=== PATIENT | male | born 1955 | race Caucasian/White ===

== ENCOUNTER 2017-10-14 13:28 | Emergency (ER) | payer BC ==
[2017-10-14 13:43] VITALS: BP 134/74
--- NOTE | 2017-10-14 14:20 | UC ---
Cardiac HPI - HPI Summary HPI Summary: 62 yo male with one week hx of lower sternal chest pain which has been intermittent. Has been sweating a lot and has had mild dyspnea. He is under a lot of stress due to a divorce On Clomid for LOW T - History of Current Complaint Chief Complaint: UCGeneralIllness Stated Complaint: STOMACH COMPAINT Time Seen by Provider: 10/14/17 13:49 Hx Obtained From: Patient Onset/Duration: Gradual Onset, Lasting Days Timing: Intermittent Episodes Lasting: - hours Initial Severity: Moderate Current Severity: Mild Pain Intensity: 3 Chest Pain Location: Lower Sternal Character: Dull/Aching Aggravating Factor(s): Nothing Alleviating Factor(s): Spontaneous Resolution Associated Signs & Symptoms: Positive: Recent Stress, SOB, Diaphoresis - Allergy/Home Medications Allergies/Adverse Reactions: Allergies Allergy/AdvReac Type Severity Reaction Status Date / Time Latex Allergy SENSITIVE Verified 10/14/17 14:12 Home Medications: Home Medications Aspirin 3 tab PO ONCE 10/14/17 [History Confirmed 10/14/17] Brimonidine/Timolol OPTH(NF) [Combigan OPHTH (NF)] 1 drop BOTH EYES 10/14/17 [ History] Clomiphene Citrate 25 mg PO DAILY 10/14/17 [History Confirmed 10/14/17] PMH/Surg Hx/FS Hx/Imm Hx Previously Healthy: Yes Endocrine History: Dyslipidemia Cardiovascular History: Hypertension - Surgical History Surgical History: Yes Surgery Procedure, Year, and Place: UROLOGY SURGERIES- [facility] [place]. FOOT SURGERY- - Family History Known Family History: Positive: Cardiac Disease, Hypertension - Social History Alcohol Use: Rare Substance Use Type: None Smoking Status (MU): Current Some Day Smoker Amount Used/How Often: cigars rarely Review of Systems Constitutional: Negative Skin: Negative Eyes: Negative ENT: Negative Respiratory: Shortness Of Breath Cardiovascular: Chest Pain Gastrointestinal: Negative Genitourinary: Negative Motor: Negative Neurovascular: Negative Musculoskeletal: Negative Neurological: Negative Psychological: Negative Is Patient Immunocompromised?: No All Other Systems Reviewed And Are Negative: Yes Physical Exam Triage Information Reviewed: Yes Appearance: Well-Appearing, No Pain Distress, Well-Nourished Vital Signs: Initial Vital Signs Temp 98.4 F 10/14/17 13:36 Pulse 63 10/14/17 13:36 Resp 16 10/14/17 13:36 BP 134/74 10/14/17 13:36 Eye Exam: Normal ENT: Positive: Hearing grossly normal, Nasal congestion, Nasal drainage. Negative: Muffled voice Neck: Positive: Supple, Nontender, No Lymphadenopathy Respiratory: Positive: Lungs clear, Normal breath sounds, No respiratory distress, No accessory muscle use Cardiovascular: Positive: RRR, No Murmur Abdomen Description: Positive: Nontender, No Organomegaly, Soft Musculoskeletal: Positive: ROM Intact, No Edema Neurological: Positive: Alert Psychological Exam: Normal Skin Exam: Normal Diagnostics - EKG Cardiac Rate: NL Cardiac Rhythm: LBBB: Normal - with LAHB Ectopy: None ST Segment: Normal - Assessment/Plan Course Of Treatment: declines EMS transfer. declined our ASA but took three baby ASA of his own. D/W Dr. Cordon - Clinical Impression Provider Diagnoses: Chest pain of uncertain cause Discharge - Discharge Plan Condition: Stable Disposition: HOME Referrals: No Primary Care Phys,NOPCP [Primary Care Provider] - Additional Instructions: I suggest you go to the ER for further evaluation of your symptoms
== END 2017-10-14 14:15 | disposition home or self-care (01) ==
LOC: UCEAST 13:28
DX: R07.2 Precordial pain (principal); Z72.0 Tobacco use
CPT/HCPCS: 93005; 99212; G0463

== ENCOUNTER 2017-10-14 14:30 | Observation (INO) | payer BC ==
--- NOTE | 2017-10-14 16:02 | RAD ---
HISTORY: Chest pain COMPARISONS: February 22, 2012 VIEWS: 1: frontal portable view of the chest at 3:35 PM FINDINGS: LINES AND TUBES: None. CARDIOMEDIASTINAL SILHOUETTE: The cardiomediastinal silhouette is normal for portable technique. PLEURA: The costophrenic angles are sharp. No pleural abnormalities are noted. LUNG PARENCHYMA: The lungs are clear. ABDOMEN: The upper abdomen is clear. There is no subphrenic gas. BONES AND SOFT TISSUES: No bone or soft tissue abnormalities are noted. IMPRESSION: NO ACTIVE CARDIOPULMONARY DISEASE.
[2017-10-14 16:40] LABS: Hematocrit 39 % (42-52); Hemoglobin 13.2 g/dl (14.0-18.0); Mean Corpuscular HGB Conc 34 g/dl (31-36); Mean Corpuscular Hemoglobin 32 pg (27-31); Mean Corpuscular Volume 94 fL (80-94); Mean Platelet Volume 8 um3 (7.4-10.4); Red Blood Count 4.14 10^6/ul (4.0-5.4); Red Cell Distribution Width 14 % (10.5-15); White Blood Count 8.2 10^3/ul (3.5-10.8)
[2017-10-14 16:54] LABS: Albumin 3.9 g/dL (3.2-5.2); BUN/Creatinine Ratio 15.7 (8-20); Calcium 8.8 mg/dL (8.6-10.3); EGFR African American 89.4 (>60); EGFR Non-African American 69.5 (>60); Globulin 2.8 g/dL (2-4); Magnesium 2.1 mg/dL (1.9-2.7); Potassium 3.8 mmol/L (3.5-5.0); Total Bilirubin 0.5 mg/dL (0.2-1.0); Total Protein 6.7 g/dL (6.4-8.9)
[2017-10-14 16:56] LABS: Urine Bilirubin Negative (Negative); Urine Glucose Negative (Negative); Urine Nitrite Negative (Negative)
[2017-10-14 17:59] LABS: T4 8.08 mcg/mL (6.09-12.23)
[2017-10-14 18:02] LABS: TSH (Thyroid Stimulating Horm) 1.87 mcIU/mL (0.34-5.60)
[2017-10-14] MEDS ORDERED: Atenolol TAB* 25 MG PO ONE (20:10)
[2017-10-14] MEDS ORDERED: amLODIPine TAB* 5 MG PO ONE (20:10)
[2017-10-14] MEDS ORDERED: oxyCODONE TAB* 5 MG TAB PO ONE (20:10)
--- NOTE | 2017-10-14 20:20 | ED ---
Kaushal Dubios Gabriel, scribed for Dionna Cordon MD on 10/14/17 at 1503 . HPI Chest Pain - HPI Summary HPI Summary: This patient is a 62 year old M presenting to [facility] [place] [facility] [place], accompanied by his female significant other with a chief complaint of "solar plexus pain" since a week ago. The patient rates the pain 3/10 in severity. Patient reports intermittent sob for the last year. Patient denies radiating pain. Patient works out 6 days a week and does not have heart issues while working out. Patient takes Atenolol, rosuvastatin, amlodipine, lumigan, ASA, and oxycodone daily. He is on Clomid for low testosterone and believes that might be the reason for his chest discomfort. Pt received ASA in urgent care. 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 Pt has known hx hyperlipidemia, HTN,and RBBB, + fam hx CAD. Is followed by electronic commerce specialist in [facility], Dr. Potter. Had a neg stress ECHO in 12/2014. - History of Current Complaint Chief Complaint: EDWeakness Time Seen by Provider: 10/14/17 14:39 Hx Obtained From: Patient, Medical Records - from [facility], Other: - Dr. Ibanez at urgent care. Onset/Duration: Started Weeks Ago - 1, Still Present Timing: Constant Initial Severity: Mild Current Severity: Mild Pain Intensity: 3 Pain Scale Used: 0-10 Numeric Chest Pain Location: Diffuse Chest Pain Radiates: No Character: Dull/Aching, Dyspnea at Rest - occasional Aggravating Factor(s): Nothing Alleviating Factor(s): Nothing Associated Signs and Symptoms: Positive: Negative - radiation of pain, Chest Pain, Recent Stress, Shortness of Breath - Risk Factors AMI/ACS Risk Factors: Family History, Hypertension, Dyslipidemia - Allergy/Home Medications Allergies/Adverse Reactions: Allergies Allergy/AdvReac Type Severity Reaction Status Date / Time Latex Allergy SENSITIVE Verified 10/14/17 14:12 PMH/Surg Hx/FS Hx/Imm Hx Previously Healthy: No Endocrine/Hematology History: Reports: Hx Thyroid Disease - HYPOTHYROID- [facility] Cardiovascular History: Reports: Hx Hypercholesterolemia, Hx Hypertension - ON MEDICATION FOR History: Reports: Hx Kidney Stones Musculoskeletal History: Reports: Hx Arthritis Sensory History: Reports: Hx Glaucoma - BILATERAL Denies: Hx Contacts or Glasses, Hx Hearing Aid Opthamlomology History: Reports: Hx Glaucoma - BILATERAL Denies: Hx Contacts or Glasses - Surgical History Surgery Procedure, Year, and Place: UROLOGY SURGERIES- [facility]. FOOT SURGERY-. Cj injection in bladder Hx Anesthesia Reactions: No Infectious Disease History: No Infectious Disease History: Denies: Traveled Outside the [place] in Last 30 Days - Family History Known Family History: Positive: Cardiac Disease, Hypertension - Social History Alcohol Use: Rare Substance Use Type: Reports: None Smoking Status (MU): Current Some Day Smoker Type: Cigars Amount Used/How Often: cigars rarely Review of Systems Constitutional: Negative Positive: Chest Pain Positive: Shortness Of Breath Gastrointestinal: Negative Skin: Negative Neurological: Negative Psychological: Normal All Other Systems Reviewed And Are Negative: Yes Physical Exam - Summary Physical Exam Summary: Appearance: Well-appearing, mild pain distress, Well-nourished Skin: Warm, color reflects adequate perfusion Head: Normal Head/Face inspection Eyes: Conjunctiva clear, EOMI ENT: Normal appearance Neck: Supple, no bruits, nontender, no lymphadenopathy Respiratory: Lungs clear, Normal breath sounds, no respiratory distress Cardio: RRR, No murmur, pulses normal, brisk capillary refill Abdomen: soft, nontender Musculoskeletal: Strength Intact/ ROM intact Neuro: Alert, muscle tone normal, ED: facial symmetry, speech normal, sensory/ motor intact A&Ox3, CN II-XII intact, Gait WNL Psychological: Normal Triage Information Reviewed: Yes Vital Signs On Initial Exam: Initial Vitals Temp Pulse Resp BP Pulse Ox 97.6 F 71 16 153/82 98 10/14/17 14:37 10/14/17 14:37 10/14/17 14:37 10/14/17 14:37 10/14/17 14:37 Vital Signs Reviewed: Yes Diagnostics - Vital Signs Vital Signs Temp Pulse Resp BP Pulse Ox 10/14/17 14:37 97.6 F 71 16 153/82 98 - Laboratory Lab Results: Lab Results 10/14/17 10/14/17 10/14/17 Range/Units 16:18 16:18 16:18 WBC 8.2 (3.5-10.8) 10^3/ul RBC 4.14 (4.0-5.4) 10^6/ul Hgb 13.2 L (14.0-18.0) g/dl Hct 39 L (42-52) % MCV 94 (80-94) fL MCH 32 H (27-31) pg MCHC 34 (31-36) g/dl RDW 14 (10.5-15) % Plt Count 192 (150-450) 10^3/ul MPV 8 (7.4-10.4) um3 Neut % (Auto) 65.0 (38-83) % Lymph % (Auto) 20.6 L (25-47) % Hartley % (Auto) 8.9 (1-9) % Eos % (Auto) 4.9 (0-6) % Baso % (Auto) 0.6 (0-2) % Absolute Neuts (auto) 5.3 (1.5-7.7) 10^3/ul Absolute Lymphs (auto) 1.7 (1.0-4.8) 10^3/ul Absolute Monos (auto) 0.7 (0-0.8) 10^3/ul Absolute Eos (auto) 0.4 (0-0.6) 10^3/ul Absolute Basos (auto) 0.1 (0-0.2) 10^3/ul Absolute Nucleated RBC 0 10^3/ul Nucleated RBC % 0 INR (Anticoag Therapy) 0.88 (0.77-1.02) APTT 29.9 (26.0-36.3) seconds D-Dimer, Quantitative < 200 (Less Than 230) ng/mL Sodium (133-145) mmol/L Potassium (3.5-5.0) mmol/L Chloride (101-111) mmol/L Carbon Dioxide (22-32) mmol/L Anion Gap (2-11) mmol/L BUN (6-24) mg/dL Creatinine (0.67-1.17) mg/dL Est GFR ( Amer) (>60) Est GFR (Non-Af Amer) (>60) BUN/Creatinine Ratio (8-20) Glucose (70-100) mg/dL Lactic Acid (0.5-2.0) mmol/L Calcium (8.6-10.3) mg/dL Magnesium (1.9-2.7) mg/dL Total Bilirubin (0.2-1.0) mg/dL AST (13-39) U/L ALT (7-52) U/L Alkaline Phosphatase (34-104) U/L Total Creatine Kinase (10-223) U/L CK-MB (CK-2) (0.6-6.3) ng/mL Troponin I (<0.04) ng/mL B-Natriuretic Peptide 50 ( - 100) pg/mL Total Protein (6.4-8.9) g/dL Albumin (3.2-5.2) g/dL Globulin (2-4) g/dL Albumin/Globulin Ratio (1-3) TSH (0.34-5.60) mcIU/mL Thyroxine (T4) (6.09-12.23) mcg/mL Urine Color Urine Appearance Urine pH (5-9) Ur Specific [place] (1.010-1.030) Urine Protein (Negative) Urine Ketones (Negative) Urine Blood (Negative) Urine Nitrate (Negative) Urine Bilirubin (Negative) Urine Urobilinogen (Negative) Ur Leukocyte Esterase (Negative) Urine Glucose (Negative) 10/14/17 10/14/17 10/14/17 Range/Units 16:18 16:18 16:23 WBC (3.5-10.8) 10^3/ul RBC (4.0-5.4) 10^6/ul Hgb (14.0-18.0) g/dl Hct (42-52) % MCV (80-94) fL MCH (27-31) pg MCHC (31-36) g/dl RDW (10.5-15) % Plt Count (150-450) 10^3/ul MPV (7.4-10.4) um3 Neut % (Auto) (38-83) % Lymph % (Auto) (25-47) % Hartley % (Auto) (1-9) % Eos % (Auto) (0-6) % Baso % (Auto) (0-2) % Absolute Neuts (auto) (1.5-7.7) 10^3/ul Absolute Lymphs (auto) (1.0-4.8) 10^3/ul Absolute Monos (auto) (0-0.8) 10^3/ul Absolute Eos (auto) (0-0.6) 10^3/ul Absolute Basos (auto) (0-0.2) 10^3/ul Absolute Nucleated RBC 10^3/ul Nucleated RBC % INR (Anticoag Therapy) (0.77-1.02) APTT (26.0-36.3) seconds D-Dimer, Quantitative (Less Than 230) ng/mL Sodium 133 (133-145) mmol/L Potassium 3.8 (3.5-5.0) mmol/L Chloride 98 L (101-111) mmol/L Carbon Dioxide 27 (22-32) mmol/L Anion Gap 8 (2-11) mmol/L BUN 17 (6-24) mg/dL Creatinine 1.08 (0.67-1.17) mg/dL Est GFR ( Amer) 89.4 (>60) Est GFR (Non-Af Amer) 69.5 (>60) BUN/Creatinine Ratio 15.7 (8-20) Glucose 134 H (70-100) mg/dL Lactic Acid 1.0 (0.5-2.0) mmol/L Calcium 8.8 (8.6-10.3) mg/dL Magnesium 2.1 (1.9-2.7) mg/dL Total Bilirubin 0.50 (0.2-1.0) mg/dL AST 27 (13-39) U/L ALT 21 (7-52) U/L Alkaline Phosphatase 51 (34-104) U/L Total Creatine Kinase 133 (10-223) U/L CK-MB (CK-2) 4.5 (0.6-6.3) ng/mL Troponin I 0.00 (<0.04) ng/mL B-Natriuretic Peptide ( - 100) pg/mL Total Protein 6.7 (6.4-8.9) g/dL Albumin 3.9 (3.2-5.2) g/dL Globulin 2.8 (2-4) g/dL Albumin/Globulin Ratio 1.4 (1-3) TSH 1.87 (0.34-5.60) mcIU/mL Thyroxine (T4) 8.08 (6.09-12.23) mcg/mL Urine Color Straw Urine Appearance Clear Urine pH 6.0 (5-9) Ur Specific [place] 1.004 L (1.010-1.030) Urine Protein Negative (Negative) Urine Ketones Negative (Negative) Urine Blood Negative (Negative) Urine Nitrate Negative (Negative) Urine Bilirubin Negative (Negative) Urine Urobilinogen Negative (Negative) Ur Leukocyte Esterase Negative (Negative) Urine Glucose Negative (Negative) Result Diagrams: 10/14/17 21:20 10/14/17 21:20 Lab Statement: Any lab studies that have been ordered have been reviewed, and results considered in the medical decision making process. - EKG 1446 Cardiac Rate: NL EKG Rhythm: Sinus Rhythm - at64 BPM EKG Interpretation: Normal AV, prolonged IV, RBBB, LAFB, normal QTc, left axis minus 44 Re-Evaluation - Re-Evaluation First Eval Re-Evaluation Time: 18:30 - No CP. Advised he needs consult for admit for possible stress test. Pt not sure if he will stay. 2nd troponin drawn. Change: Unchanged Second Eval Re-Evaluation Time: 19:45 - Pt wants to leave. Is deciding if he will stay for stress test in am. Change: Unchanged Chest Pain Course/Dx - Course Course Of Treatment: pt given ASA in UC. TONY score 2 for HTN, HLD and fam hx, and ASA use. last stress ECHO 01/10. Admit obs to hospitalist for stress test in AM - Chest Pain Differential Diagnosis/HQI/PQRI: Acute MO, ACS, Angina, Chest Wall, GI Disease, Lower Respiratory Infection, Pulmonary Embolism - Diagnoses Provider Diagnoses: Chest pain - Provider Notifications Discussed Care Of Patient With: Tu Call Time Discussed With Above Provider: 18:39 Instructed by Provider To: Admit As Observation - We discussed patient care with Dr. Call and they agreed to come and do a consult. [address] Corey. He does not recommend discharge at this time. Needs to do full consult, but expects to admit obs and arrange stress test in theam. - Critical Care Time Critical Care Time: 30-74 min - 30 mins Discharge - Discharge Plan Condition: Stable Disposition: ADMITTED TO [facility] documentation as recorded by the Kaushal collier Gabriel accurately reflects the service I personally performed and the decisions made by me, Dionna Cordon MD.
[2017-10-14] MEDS ORDERED: Ondansetron INJ* 2 MG/ML VIAL IV PRN (20:52)
[2017-10-14] MEDS ORDERED: Nicotine Inhaler* 10 MG AMP INH PRN (20:52)
[2017-10-14] MEDS ORDERED: Acetaminophen TAB* 325 MG PO PRN (20:52)
[2017-10-14] MEDS ORDERED: Albuterol 2.5 MG/3 ML NEB.SOL* (0.083%) INH PRN (20:52)
[2017-10-14] MEDS ORDERED: CMCS: Melatonin (NF) 3 MG TAB PO PRN (20:52)
[2017-10-14] MEDS ORDERED: Atorvastatin* 40 MG TAB PO SCH (21:00)
[2017-10-14] MEDS ORDERED: Tamsulosin CAP* 0.4 MG PO SCH (21:00)
[2017-10-14] MEDS ORDERED: NS 0.9% 1000 ML* 1,000 ML IV SCH (21:00)
[2017-10-14 21:34] LABS: Hematocrit 40 % (42-52); Hemoglobin 13.6 g/dl (14.0-18.0); Mean Corpuscular HGB Conc 34 g/dl (31-36); Mean Corpuscular Hemoglobin 32 pg (27-31); Mean Corpuscular Volume 93 fL (80-94); Mean Platelet Volume 8 um3 (7.4-10.4); Red Blood Count 4.31 10^6/ul (4.0-5.4); Red Cell Distribution Width 14 % (10.5-15)
[2017-10-14 21:47] LABS: EGFR African American 106.2 (>60); EGFR Non-African American 82.6 (>60)
[2017-10-14] MEDS: Docusate CAP* 100 MG PO SCH (22:44)
[2017-10-14] MEDS ORDERED: Artificial Tears* 15 ML BTL BOTH EYES PRN (22:50)
--- NOTE | 2017-10-15 04:25 | HP ---
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 However, this is in the setting of months of episodic exertional chest discomfort associated with SOB. It is unclear what exactly tipped the balance causing him to seek evaluation at this time. He additionally reports months of hyperhidrosis which is improving after initiating treatment for low testosterone. PMedHx HTN RBBB urethral strictures BPH chronic LBP low testosterone orthostasis Ambulatory Orders Atenolol TAB* [Tenormin TAB*] 25 mg PO QPM 07/21/13 Multiple Vitamin [Multi-Vitamin] 1 tab PO DAILY 07/21/13 Rosuvastatin (NF) [Crestor (NF)] 2.5 mg PO DAILY 07/21/13 Tamsulosin CAP* [Flomax CAP*] 0.5 mg PO BEDTIME 07/21/13 amLODIPine TAB* [Norvasc TAB*] 5 mg PO QPM 07/21/13 oxyCODONE TAB* [Roxycodone TAB*] 10 mg PO Q6H PRN 07/21/13 Bimatoprost 0.01% OPHTH (NF) [Lumigan 0.01% OPHTH (NF)] 1 drop BOTH EYES DAILY 07/22/13 Aspirin 1 tab PO ONCE 10/14/17 Clomiphene Citrate 25 mg PO DAILY 10/14/17 Allergies Latex Allergy (Verified 10/14/17 14:12) SENSITIVE SocHx: <1/2 PPD cigarettes, rare alcohol, no recreational drugs; lives with his ; 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; full code status FamHx: Mother: passed in 80s 2nd CAD; Father: passed in 80s 2nd CAD; paternal GF : passed in his 50s 2nd CAD ROS: as above, otherwise reviewed and all were negative vitals: Vital Signs Temp 36.8 C 10/14/17 22:26 Pulse 67 10/14/17 22:26 Resp 16 10/14/17 22:26 BP 146/81 10/14/17 22:26 Pulse Ox 97 10/14/17 22:26 Intake & Output 1210/14/17 10/15/17 11:59 23:59 11:59 Intake Total 0 Balance 0 Weight 74.616 kg Intake: Oral 0 Constitutional: NAD, normally developed, well-nourished white male HEENM: atraumatic; sclera/conjunctiva: anicteric/clear; hearing: clinically intact; oropharynx: clear, mucosa moist Neck: soft tissue: non-tender; thyroid: normal Pulmonary: clear to auscultation bilaterally, good aeration, no accessory muscle use CV: RR/RR, normal S1S2, no carotid bruit, no jugular venous distention, 2+ B DP/ PT, no edema Abdominal: soft, non-distended, non-tender, no rebound/guarding/rigidity, normoactive bowel sounds, no hepatosplenomegaly or masses, no costovertebral angle tenderness Musculoskeletal: general: grossly intact; gait: stable Integumental: normal appearance and texture of exposed skin Psychiatric orientation: AA&O to PPS affect: calm mood: cooperative eye contact: good content: reliable responses: timely insight: good Testing: Lab Results 10/14/17 10/14/17 10/14/17 Range/Units 16:18 16:18 16:18 WBC 8.2 (3.5-10.8) 10^3/ul RBC 4.14 (4.0-5.4) 10^6/ul Hgb 13.2 L (14.0-18.0) g/dl Hct 39 L (42-52) % MCV 94 (80-94) fL MCH 32 H (27-31) pg MCHC 34 (31-36) g/dl RDW 14 (10.5-15) % Plt Count 192 (150-450) 10^3/ul MPV 8 (7.4-10.4) um3 Neut % (Auto) 65.0 (38-83) % Lymph % (Auto) 20.6 L (25-47) % [place] % (Auto) 8.9 (1-9) % Eos % (Auto) 4.9 (0-6) % Baso % (Auto) 0.6 (0-2) % Absolute Neuts (auto) 5.3 (1.5-7.7) 10^3/ul Absolute Lymphs (auto) 1.7 (1.0-4.8) 10^3/ul Absolute Monos (auto) 0.7 (0-0.8) 10^3/ul Absolute Eos (auto) 0.4 (0-0.6) 10^3/ul Absolute Basos (auto) 0.1 (0-0.2) 10^3/ul Absolute Nucleated RBC 0 10^3/ul Nucleated RBC % 0 INR (Anticoag Therapy) 0.88 (0.77-1.02) APTT 29.9 (26.0-36.3) seconds D-Dimer, Quantitative < 200 (Less Than 230) ng/mL Sodium (133-145) mmol/L Potassium (3.5-5.0) mmol/L Chloride (101-111) mmol/L Carbon Dioxide (22-32) mmol/L Anion Gap (2-11) mmol/L BUN (6-24) mg/dL Creatinine (0.67-1.17) mg/dL Est GFR ( Amer) (>60) Est GFR (Non-Af Amer) (>60) BUN/Creatinine Ratio (8-20) Glucose (70-100) mg/dL Lactic Acid (0.5-2.0) mmol/L Calcium (8.6-10.3) mg/dL Magnesium (1.9-2.7) mg/dL Total Bilirubin (0.2-1.0) mg/dL AST (13-39) U/L ALT (7-52) U/L Alkaline Phosphatase (34-104) U/L Total Creatine Kinase (10-223) U/L CK-MB (CK-2) (0.6-6.3) ng/mL Troponin I (<0.04) ng/mL B-Natriuretic Peptide 50 ( - 100) pg/mL Total Protein (6.4-8.9) g/dL Albumin (3.2-5.2) g/dL Globulin (2-4) g/dL Albumin/Globulin Ratio (1-3) TSH (0.34-5.60) mcIU/mL Thyroxine (T4) (6.09-12.23) mcg/mL Urine Color Urine Appearance Urine pH (5-9) Ur Specific Mulberry (1.010-1.030) Urine Protein (Negative) Urine Ketones (Negative) Urine Blood (Negative) Urine Nitrate (Negative) Urine Bilirubin (Negative) Urine Urobilinogen (Negative) Ur Leukocyte Esterase (Negative) Urine Glucose (Negative) 10/14/17 10/14/17 10/14/17 Range/Units 16:18 16:18 16:23 WBC (3.5-10.8) 10^3/ul RBC (4.0-5.4) 10^6/ul Hgb (14.0-18.0) g/dl Hct (42-52) % MCV (80-94) fL MCH (27-31) pg MCHC (31-36) g/dl RDW (10.5-15) % Plt Count (150-450) 10^3/ul MPV (7.4-10.4) um3 Neut % (Auto) (38-83) % Lymph % (Auto) (25-47) % [place] % (Auto) (1-9) % Eos % (Auto) (0-6) % Baso % (Auto) (0-2) % Absolute Neuts (auto) (1.5-7.7) 10^3/ul Absolute Lymphs (auto) (1.0-4.8) 10^3/ul Absolute Monos (auto) (0-0.8) 10^3/ul Absolute Eos (auto) (0-0.6) 10^3/ul Absolute Basos (auto) (0-0.2) 10^3/ul Absolute Nucleated RBC 10^3/ul Nucleated RBC % INR (Anticoag Therapy) (0.77-1.02) APTT (26.0-36.3) seconds D-Dimer, Quantitative (Less Than 230) ng/mL Sodium 133 (133-145) mmol/L Potassium 3.8 (3.5-5.0) mmol/L Chloride 98 L (101-111) mmol/L Carbon Dioxide 27 (22-32) mmol/L Anion Gap 8 (2-11) mmol/L BUN 17 (6-24) mg/dL Creatinine 1.08 (0.67-1.17) mg/dL Est GFR ( Amer) 89.4 (>60) Est GFR (Non-Af Amer) 69.5 (>60) BUN/Creatinine Ratio 15.7 (8-20) Glucose 134 H (70-100) mg/dL Lactic Acid 1.0 (0.5-2.0) mmol/L Calcium 8.8 (8.6-10.3) mg/dL Magnesium 2.1 (1.9-2.7) mg/dL Total Bilirubin 0.50 (0.2-1.0) mg/dL AST 27 (13-39) U/L ALT 21 (7-52) U/L Alkaline Phosphatase 51 (34-104) U/L Total Creatine Kinase 133 (10-223) U/L CK-MB (CK-2) 4.5 (0.6-6.3) ng/mL Troponin I 0.00 (<0.04) ng/mL B-Natriuretic Peptide ( - 100) pg/mL Total Protein 6.7 (6.4-8.9) g/dL Albumin 3.9 (3.2-5.2) g/dL Globulin 2.8 (2-4) g/dL Albumin/Globulin Ratio 1.4 (1-3) TSH 1.87 (0.34-5.60) mcIU/mL Thyroxine (T4) 8.08 (6.09-12.23) mcg/mL Urine Color Straw Urine Appearance Clear Urine pH 6.0 (5-9) Ur Specific Mul[place] 1.004 L (1.010-1.030) Urine Protein Negative (Negative) Urine Ketones Negative (Negative) Urine Blood Negative (Negative) Urine Nitrate Negative (Negative) Urine Bilirubin Negative (Negative) Urine Urobilinogen Negative (Negative) Ur Leukocyte Esterase Negative (Negative) Urine Glucose Negative (Negative) 10/14/17 10/14/17 10/14/17 Range/Units 19:20 21:20 21:20 WBC (3.5-10.8) 10^3/ul RBC (4.0-5.4) 10^6/ul Hgb (14.0-18.0) g/dl Hct (42-52) % MCV (80-94) fL MCH (27-31) pg MCHC (31-36) g/dl RDW (10.5-15) % Plt Count (150-450) 10^3/ul MPV (7.4-10.4) um3 Neut % (Auto) (38-83) % Lymph % (Auto) (25-47) % [place] % (Auto) (1-9) % Eos % (Auto) (0-6) % Baso % (Auto) (0-2) % Absolute Neuts (auto) (1.5-7.7) 10^3/ul Absolute Lymphs (auto) (1.0-4.8) 10^3/ul Absolute Monos (auto) (0-0.8) 10^3/ul Absolute Eos (auto) (0-0.6) 10^3/ul Absolute Basos (auto) (0-0.2) 10^3/ul Absolute Nucleated RBC 10^3/ul Nucleated RBC % INR (Anticoag Therapy) 0.82 (0.77-1.02) APTT 30.0 (26.0-36.3) seconds D-Dimer, Quantitative (Less Than 230) ng/mL Sodium (133-145) mmol/L Potassium (3.5-5.0) mmol/L Chloride (101-111) mmol/L Carbon Dioxide (22-32) mmol/L Anion Gap (2-11) mmol/L BUN 14 (6-24) mg/dL Creatinine 0.93 (0.67-1.17) mg/dL Est GFR ( Amer) 106.2 (>60) Est GFR (Non-Af Amer) 82.6 (>60) BUN/Creatinine Ratio (8-20) Glucose (70-100) mg/dL Lactic Acid (0.5-2.0) mmol/L Calcium (8.6-10.3) mg/dL Magnesium (1.9-2.7) mg/dL Total Bilirubin (0.2-1.0) mg/dL AST (13-39) U/L ALT (7-52) U/L Alkaline Phosphatase (34-104) U/L Total Creatine Kinase (10-223) U/L CK-MB (CK-2) (0.6-6.3) ng/mL Troponin I 0.01 (<0.04) ng/mL B-Natriuretic Peptide ( - 100) pg/mL Total Protein (6.4-8.9) g/dL Albumin (3.2-5.2) g/dL Globulin (2-4) g/dL Albumin/Globulin Ratio (1-3) TSH (0.34-5.60) mcIU/mL Thyroxine (T4) (6.09-12.23) mcg/mL Urine Color Urine Appearance Urine pH (5-9) Ur Specific Mul[place] (1.010-1.030) Urine Protein (Negative) Urine Ketones (Negative) Urine Blood (Negative) Urine Nitrate (Negative) Urine Bilirubin (Negative) Urine Urobilinogen (Negative) Ur Leukocyte Esterase (Negative) Urine Glucose (Negative) 10/14/17 10/15/17 Range/Units 21:20 00:42 WBC 8.0 (3.5-10.8) 10^3/ul RBC 4.31 (4.0-5.4) 10^6/ul Hgb 13.6 L (14.0-18.0) g/dl Hct 40 L (42-52) % MCV 93 (80-94) fL MCH 32 H (27-31) pg MCHC 34 (31-36) g/dl RDW 14 (10.5-15) % Plt Count 200 (150-450) 10^3/ul MPV 8 (7.4-10.4) um3 Neut % (Auto) 59.8 (38-83) % Lymph % (Auto) 22.7 L (25-47) % [place] % (Auto) 10.1 H (1-9) % Eos % (Auto) 6.8 H (0-6) % Baso % (Auto) 0.6 (0-2) % Absolute Neuts (auto) 4.8 (1.5-7.7) 10^3/ul Absolute Lymphs (auto) 1.8 (1.0-4.8) 10^3/ul Absolute Monos (auto) 0.8 (0-0.8) 10^3/ul Absolute Eos (auto) 0.5 (0-0.6) 10^3/ul Absolute Basos (auto) 0 (0-0.2) 10^3/ul Absolute Nucleated RBC 0 10^3/ul Nucleated RBC % 0 INR (Anticoag Therapy) (0.77-1.02) APTT (26.0-36.3) seconds D-Dimer, Quantitative (Less Than 230) ng/mL Sodium (133-145) mmol/L Potassium (3.5-5.0) mmol/L Chloride (101-111) mmol/L Carbon Dioxide (22-32) mmol/L Anion Gap (2-11) mmol/L BUN (6-24) mg/dL Creatinine (0.67-1.17) mg/dL Est GFR ( Amer) (>60) Est GFR (Non-Af Amer) (>60) BUN/Creatinine Ratio (8-20) Glucose (70-100) mg/dL Lactic Acid (0.5-2.0) mmol/L Calcium (8.6-10.3) mg/dL Magnesium (1.9-2.7) mg/dL Total Bilirubin (0.2-1.0) mg/dL AST (13-39) U/L ALT (7-52) U/L Alkaline Phosphatase (34-104) U/L Total Creatine Kinase (10-223) U/L CK-MB (CK-2) (0.6-6.3) ng/mL Troponin I 0.00 (<0.04) ng/mL B-Natriuretic Peptide ( - 100) pg/mL Total Protein (6.4-8.9) g/dL Albumin (3.2-5.2) g/dL Globulin (2-4) g/dL Albumin/Globulin Ratio (1-3) TSH (0.34-5.60) mcIU/mL Thyroxine (T4) (6.09-12.23) mcg/mL Urine Color Urine Appearance Urine pH (5-9) Ur Specific [place] (1.010-1.030) Urine Protein (Negative) Urine Ketones (Negative) Urine Blood (Negative) Urine Nitrate (Negative) Urine Bilirubin (Negative) Urine Urobilinogen (Negative) Ur Leukocyte Esterase (Negative) Urine Glucose (Negative) ECG, personally reviewed: sinus RBBB rate 64, no ischemia CXR, personally reviewed: IMPRESSION: NO ACTIVE CARDIOPULMONARY DISEASE. Impression: 62M presenting with atypical chest pain for r/o ACS DIAGNOSIS & PLAN Primary atypical chest pain r/o ACS : telemetry : trend troponin : patient requests non-nuclear stress test & has knee pain; so a dobutamine stress ECHO was ordered : supplemental oxygen : took 324mg aspirin today : took atenolol this evening : supportive care Secondary HTN : continue atenolol & amlodipine HLD : continue rosuvastatin BPH : continue tamsulosin chronic LBP : continue oxycodone low testosterone : continue clomiphene Admission Rational: observation for r/o ACS DVTp: heparin SQ Code Status: full HCP:
[2017-10-15] MEDS ORDERED: Omeprazole CAP* 20 MG PO SCH (06:00)
[2017-10-15] MEDS ORDERED: Heparin VIAL(*) 5000 UNITS/ML VIAL (FIVE THOUSAND) SUBCUT SCH (06:00)
[2017-10-15 07:07] LABS: Hematocrit 38 % (42-52); Hemoglobin 13.1 g/dl (14.0-18.0); Mean Corpuscular HGB Conc 34 g/dl (31-36); Mean Corpuscular Hemoglobin 32 pg (27-31); Mean Corpuscular Volume 94 fL (80-94); Mean Platelet Volume 8 um3 (7.4-10.4); Red Blood Count 4.08 10^6/ul (4.0-5.4); Red Cell Distribution Width 14 % (10.5-15); White Blood Count 7.3 10^3/ul (3.5-10.8)
[2017-10-15 07:15] LABS: BUN/Creatinine Ratio 17.3 (8-20); Calcium 8.9 mg/dL (8.6-10.3); EGFR African American 124.6 (>60); EGFR Non-African American 96.9 (>60); Potassium 3.9 mmol/L (3.5-5.0)
[2017-10-15 07:38] VITALS: BP 108/65
[2017-10-15] MEDS ORDERED: Atropine SYRINGE* 0.1 MG/ML 10 ML SYRINGE (1 MG) ONE (08:46)
[2017-10-15] MEDS ORDERED: Metoprolol Tartrate IV* 1 MG/ML 5 ML VIAL ONE (08:46)
[2017-10-15] MEDS ORDERED: DOBUTamine 2000 MCG/ML IVPREMX 0 MG/0 ML BAG IV ONE (08:46)
[2017-10-15] MEDS ORDERED: Atorvastatin* 10 MG TAB PO SCH (09:00)
[2017-10-15] MEDS ORDERED: Furosemide TAB* 20 MG PO SCH (09:00)
[2017-10-15] MEDS ORDERED: BIMATOPROST 0.01% BOTH EYES SCH (09:00)
[2017-10-15] MEDS ORDERED: oxyCODONE TAB* 5 MG TAB PO SCH (09:00)
[2017-10-15] MEDS ORDERED: Aspirin EC Low Dose* 81 MG TAB.EC PO SCH (09:00)
[2017-10-15] MEDS ORDERED: CLOMIPHENE CITRATE PO SCH (09:00)
[2017-10-15] MEDS: Docusate CAP* 100 MG PO SCH (09:12)
--- NOTE | 2017-10-15 15:28 | PN ---
Hospitalist Progress Note Date of Service: 10/15/17 Patient left AMA prior to being seen. Pt doesn't want to wait to be seen. Discussed with Pt over the phone regarding the risks of leaving AMA. Pt left AMA.
[2017-10-15] MEDS ORDERED: amLODIPine TAB* 5 MG PO SCH (18:00)
[2017-10-15] MEDS ORDERED: Atenolol TAB* 25 MG PO SCH (18:00)
--- NOTE | 2017-10-16 08:23 | DS ---
CC: Dr. Churchill * DISCHARGE SUMMARY: DATE OF ADMISSION: 10/14/17. DATE OF DISCHARGE: 10/15/17 - against medical advice. ATTENDING PHYSICIAN: Venkat Rosales MD * (dictated by Estrella Madrigal NP). PRIMARY CARE PROVIDER: Dr. Churchill. PRIMARY DIAGNOSIS: Atypical chest pain. SECONDARY DIAGNOSES: 1. Hypertension. 2. Hyperlipidemia. 3. Benign prostate hyperplasia. 4. Chronic low back pain. 5. Low testosterone. STUDIES WHILE IN THE HOSPITAL: Chest x-ray on 10/14/17. Radiologist impression : No active cardiopulmonary disease. HOME MEDICATIONS: 1. Furosemide 10 mg oral daily. 2. Combigan 0.2/0.5% one drop to both eyes every morning. 3. Oxycodone 10 mg oral every 3 hours as needed for pain. 4. Lumigan 0.01% one drop to both eyes daily. 5. Atenolol 25 mg oral every evening. 6. Aspirin 81 mg oral daily. 7. Multivitamin one tablet oral daily. 8. Clomiphene citrate 25 mg oral daily. 9. Tamsulosin 0.5 mg oral daily at bedtime. 10. Crestor 2.5 mg oral daily. 11. Amlodipine 5 mg oral daily. 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 He denied any shortness of breath, palpitations, lightheadedness, or nausea. The patient reports this has been going on for several months with episodic external chest discomfort associated with shortness of breath. He also reports months of hyperhidrosis, which was improving after starting treatment for his low testosterone. While in the emergency room, the patient had a chest x-ray showing no acute findings. He also had an EKG showing a sinus rhythm and a right bundle-branch block and no acute signs of ischemia. Hospitalists were asked to evaluate the patient for admission. While in the hospital, the patient was requesting a nonnuclear stress test and due to his knee pain, a dobutamine stress echo was ordered. Initially, the patient was requesting to leave this morning prior to the testing. He then agreed to stay for the testing. After discussion with Dr. Gonzalez, it was decided he could be discharged today with plans for an outpatient exercise stress test tomorrow. The plan was to discharge the patient, but the patient insisted on leaving prior to my evaluation. So, he left against medical advice. It was discussed with him over the phone that his condition could worse , he could have permanent disability or that he could have . The patient stated understanding and the paper work was filled out and the patient signed it with nursing staff. DISCHARGE PLAN: Mr. Lee left against medical advice. He returned home. Activity as tolerated. He should be on a heart-healthy diet. He has been resumed on his home medications. [facility] will call the patient to give him at this time for his stress test tomorrow outpatient, afterwards he should follow up with his primary care provider. He has been asked to return to the emergency room for any chest pain, shortness of breath. This is a summarized report of a complex medical history and hospital stay. For further details, please see the entire medical record. TIME SPENT: Time for this discharge was approximately 30 minutes, a portion of that was spent discussing with the patient over the phone the risks of leaving against medical advice. CONDITION ON DISCHARGE: Stable. Reviewed by AUBREY HILL 10/16/17 1854 [id number]/[facility] #: [id number] CY
== END 2017-10-15 11:19 | disposition left against medical advice (07) ==
LOC: ED 14:30 → MEDTELE 20:44
PROVIDERS: ADMIT Hospitalist; ATTEND Hospitalist
DX: R07.89 Other chest pain (principal); I10 Essential (primary) hypertension; E78.5 Hyperlipidemia, unspecified; D29.1 Benign neoplasm of prostate; G89.29 Other chronic pain; M54.5 Low back pain; E29.1 Testicular hypofunction; Z79.82 Long term (current) use of aspirin; R06.02 Shortness of breath; Z72.0 Tobacco use
CPT/HCPCS: 36415; 71010; 80048; 80053; 81003; 82550; 82553; 82565; 83605; 83735; 83880; 84436; 84443; 84484; 84520; 85025; 85379; 85610; 85730; 93005; 96361; 96374; 99285; A9270-GY; G0378; J0461; J1250; J1644; J3490

== ENCOUNTER 2018-02-11 07:18 | Day surgery (SDC) | payer BC ==
--- NOTE | 2018-02-07 21:03 | HP ---
CC: Aydin Puentes MD * ADMITTING HISTORY AND PHYSICAL: DATE OF ADMISSION: 02/11/18 ADMITTING DIAGNOSIS: Urethral strictures. PLANNED PROCEDURE: Cystoscopy and possible internal urethrotomy (depending on intraoperative findings). SURGEON: Dr. Shelton. 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 He has been managed with intermittent self-dilatation, which recently has been becoming more difficult and when I evaluated in the office a few weeks ago, getting even a 12-Khmer dilating catheter into the bladder was difficult. He is now being brought in for further evaluation and management with the idea being to facilitate self-dilatation mode easily in the near future. PAST MEDICAL HISTORY: Significant for: 1. Longstanding complex urethral strictures with a history of Cj injections many years ago. 2. Hypertension. 3. Glaucoma. MEDICATIONS ON ADMISSION: 1. Amlodipine 10 mg a day. 2. Hydrochlorothiazide 25 mg a day. 3. Atenolol 25 mg a day. 4. Flomax 0.4 mg daily. 5. Clomid 50 mg daily. 6. Oxycodone p.r.n. ALLERGIES: LATEX. REVIEW OF SYSTEMS: He is otherwise in excellent health. There is no history of diabetes mellitus or any other major systemic illness. PHYSICAL EXAMINATION GENERAL: Reveals a pleasant healthy appearing gentleman. VITAL SIGNS: Blood pressure is 102/64, pulse 60 per minute and regular, temperature 97.4, oxygen saturation 96% on room air. LUNGS: Clear bilaterally. CARDIOVASCULAR: Regular rate and rhythm. S1, S2. ABDOMEN: Soft without masses. IMPRESSION: A 63-year-old with recurrent complex urethral strictures. PLANNED PROCEDURE: Cystoscopy, possible internal urethrotomy. [id number]/[facility] #: [id number] MTDD
[~2018-02-11 07:18] MED LIST: Buffered Lidocaine 0.9% SYRIN* 5 ML/SYR SYRINGE INTRADERM ONE; Gentamicin ADULT (*) 120 MG in NS 0.9% 100 ML* 100 ML IVPB ONE; cefTRIAXone(*) 2 GM in NS 0.9% 100 ML* 100 ML IVPB ONE
[2018-02-11] MEDS ORDERED: Lidocaine 2% JELLY* 20 ML (for OR use) ONE (08:40)
[2018-02-11] MEDS ORDERED: Naloxone* 0.4 MG/ML 1 ML VIAL IV PRN (08:54)
[2018-02-11] MEDS ORDERED: Lidocaine 2% JELLY* 6 ML JELLY TOPICAL ONE (09:34)
[2018-02-11] MEDS ORDERED: fentaNYL* 50 MCG/ML 2 ML VIAL (100 MCG VIAL) ONE (09:54)
[2018-02-11] MEDS ORDERED: oxyCODONE TAB* 5 MG TAB ONE (10:22)
[2018-02-11 10:52] VITALS: BP 130/73
--- NOTE | 2018-02-11 11:25 | OP ---
CC: Aydin Puentes MD * DATE OF OPERATION: 02/11/18 - [facility] DATE OF : 57 SURGEON: Amirk Shelton MD ANESTHESIOLOGIST: Dr. [place]. ANESTHESIA: General. PRE-OP DIAGNOSIS: Complex urethral strictures. POST-OP DIAGNOSES: Complex urethral strictures. OPERATIVE PROCEDURE: Cystoscopy and urethral dilatation. COMPLICATIONS: None. CATHETER: 14-Emirati silicone Sierra. POSTOPERATIVE CONDITION: Stable. INDICATIONS: Shawn Lee Jr. is a 63-year-old gentleman with a longstanding history of complex recurrent urethral strictures. He has recently had difficulty doing self dilatation and is now being brought in for cystoscopy, urethral dilatation under anesthesia. DESCRIPTION OF PROCEDURE: After induction of intravenous sedation (later converted to general anesthesia), cystoscopy was performed. The distal urethra was unremarkable. In the area of the bulbar urethra, there was a fairly tight stricture and a guidewire was introduced through the lumen into the bladder. The stricture was dilated initially using the soft #12 Emirati, 14 Emirati and 16 Emirati dilators and then subsequently dilated to 20 Emirati. A 17 Emirati cystoscope was introduced. The area of the stricture had some chronic inflammatory changes as expected. Slight oozing was noted at the site of the dilatation, which was carefully touched with electrocautery. The cystoscope was then advanced easily into the bladder. There was moderate enlargement of the lateral lobes of the prostate noted. Next, attention was directed to the cystoscopy. The bladder was carefully examined in its entirety and there was no evidence of any mucosal lesions or calculi noted. The bladder was then emptied. A 14 Emirati silicone Sierra was introduced without difficulty and connected to a drainage bag. The plan is to leave the catheter in for a few days to allow for the edema to resolve. The patient tolerated the procedure satisfactorily and was transferred back to the recovery area in stable condition. [id number] #: [id number] MTDD
== END 2018-02-11 10:52 | disposition home or self-care (01) ==
LOC: OR 07:18
PROVIDERS: ATTEND Urology
DX: N35.8 Other urethral stricture (principal); I10 Essential (primary) hypertension; H40.9 Unspecified glaucoma; I45.10 Unspecified right bundle-branch block
CPT/HCPCS: A9270-GY; J0696; J1580; J3010

== ENCOUNTER 2019-07-18 16:32 | Emergency (ER) | payer BC ==
[2019-07-18] MEDS ORDERED: Acetaminophen TAB* 325 MG PO ONE (17:02)
[2019-07-18] MEDS ORDERED: Lidocaine 1% MPF ** 5 ML VIAL INJ ONE (17:50)
--- NOTE | 2019-07-18 18:26 | UC ---
Neck Pain HPI - HPI Summary HPI Summary: 64-year-old male who was yanked by his 2 dogs and he fell hitting his face on the ground approximate 30 minutes prior to arrival. No loss of consciousness. He also sustained a laceration over the bridge of his nose. He denies any nose pain however he did have a nosebleed. Last tetanus immunization was approximately 2 months ago. - History of Current Complaint Chief Complaint: UCTrauma Stated Complaint: FELL ON HIS FACE Time Seen by Provider: 07/18/19 17:00 Hx Obtained From: Patient Onset/Duration Of Injury/Symptoms: Minutes Mechanism Of Injury: Blunt Trauma Timing: Constant - Patient complains of neck pain. Onset/Duration: Sudden Onset Severity: Moderate Pain Intensity: 8 Location: Discrete At: - Patient complains of pain at the base of his neck. Character: Aching Aggravating Factors: Movement Alleviating Factors: Nothing Associated Signs & Symptoms: Positive: Bruising - Mild bruising over the bridge of his nose, laceration over the nose. - Allergies/Home Medications Allergies/Adverse Reactions: Allergies Allergy/AdvReac Type Severity Reaction Status Date / Time latex Allergy See Comment Verified 07/18/19 16:49 PMH/Surg Hx/FS Hx/Imm Hx Previously Healthy: Yes Endocrine History: Thyroid Disease Cardiovascular History: Hypertension - Surgical History Surgical History: Yes Surgery Procedure, Year, and Place: [place]OLOG[place] [facility] [place]-. Cj injection in bladder - Family History Known Family History: Positive: Cardiac Disease, Hypertension - Social History Alcohol Use: None Substance Use Type: None Smoking Status (MU): Former Smoker Type: Cigars Amount Used/How Often: cigar once a month Have You Smoked in the Last Year: No When Did the Patient Quit Smoking/Using Tobacco: 1 YEAR AGO - Immunization History Most Recent Tetanus Shot: 3 months ago Review of Systems All Other Systems Reviewed And Are Negative: Yes Skin: Positive: Rash - Patient has an abrasion to his distal nose. ENT: Positive: Epistaxis - Bleeding is controlled. Musculoskeletal: Positive: Other: - Patient complains of lower neck pain. Neurological: Negative: Headache, Weakness, Paresthesia, Numbness Is Patient Immunocompromised?: No Physical Exam Triage Information Reviewed: Yes Appearance: Well-Appearing, No Pain Distress, Well-Nourished Vital Signs: Initial Vital Signs Temp 97.4 F 07/18/19 16:44 Pulse 63 07/18/19 16:44 Resp 16 07/18/19 16:44 BP 154/97 07/18/19 16:44 Pulse Ox 95 07/18/19 16:44 Vital Signs Reviewed: Yes Eyes: Positive: Conjunctiva Clear - Eyes are PERRLA. His right eye does normally deviate to the right. ENT: Positive: Hearing grossly normal, TMs normal, Other - Unable to visualize the pharynx because patient is in a Osage collar. No septal hematoma. No active epistaxis. Neck: Positive: Supple, No Lymphadenopathy, Tenderness @ - Tenderness on palpation mid to lower C-spine. Respiratory: Positive: Chest non-tender, Lungs clear, Normal breath sounds, No respiratory distress, No accessory muscle use Cardiovascular: Positive: RRR, No Murmur, Pulses Normal, Brisk Capillary Refill Abdomen Description: Positive: Nontender, No Organomegaly, Soft. Negative: CVA Tenderness (R), CVA Tenderness (L) Bowel Sounds: Positive: Present Musculoskeletal: Positive: Strength Intact - Good peripheral pulses, neuro sensation and capillary refill. Good arm and leg strength against resistance. Reflexes +1 at the knee and +1 at the elbow. Neurological: Positive: Alert - Cranial nerves II through XII are intact., Muscle Tone Normal Psychological Exam: Normal Skin: Positive: Other - Patient has an avulsion laceration over the bridge of his nose which measures approximately 1.5 cm. Neck Pain Course/Dx - Course Course Of Treatment: CT C-spine without contrast:FINDINGS: VERTEBRA: There is mild retrolisthesis at the C4-C5 and C5-C6 levels which appears unchanged. The vertebra are otherwise in normal alignment. There is mild prevertebral soft tissue swelling and a small avulsion fracture fragment arising from the anterior base of the C3 vertebral body which is distracted slightly. The fracture fragment measures 3.5 x 2.5 x 6 mm in size. C2-C3: There is mild posterior uncinate process spurring. No spinal canal narrowing is present. There is mild to moderate bilateral neural foraminal narrowing. C3-C4: There is mild posterior uncinate process spurring associated with a mild broad-based disc bulge. No significant spinal canal narrowing is present. There is mild to moderate bilateral neural foraminal narrowing. C4-C5: There is mild to moderate posterior uncinate process spurring. This causes mild spinal canal narrowing and moderate bilateral neural foraminal narrowing. C5-C6: There is mild to moderate posterior uncinate process spurring. There is mild to moderate spinal canal narrowing and moderate bilateral neural foraminal narrowing. C6-C7: No significant spinal canal or neural foraminal narrowing is seen. LUNG APICES: The lung apices appear clear. The results of this exam were discussed with the referring clinician. IMPRESSION: 1. THERE IS A SMALL ACUTE DISPLACED FRACTURE FRAGMENT ARISING FROM THE ANTERIOR INFERIOR ENDPLATE OF THE C3 VERTEBRAL BODY.. 2. MILD TO MODERATE CERVICAL SPONDYLOSIS DESCRIBED. The patient was placed in a Osage collar upon arrival and he has remained in the Osage collar. The laceration over the nose was sutured without difficulty and the patient tolerated the procedure well. Patient is being transferred to [facility] emergency room after my discussion with Dr. Manzano, for further evaluation. He has remained awake and alert his entire time here and he is neurologically intact. After instillation of lidocaine 1% plain the laceration over the nose was irrigated with copious amounts of normal saline. It was then probed and no foreign bodies were noted. It was then sutured using 60 prolene and sutures placed numbered 5. The patient tolerated procedure well. Patient was transferred by ambulance in a Osage collar, stable and awake and alert. - Differential Dx/Diagnosis Provider Diagnosis: Closed cervical spine fracture, Laceration of nose Discharge ED - Sign-Out/Discharge Documenting (check all that apply): Patient Departure All imaging exams completed and their final reports reviewed: Yes - Discharge Plan Condition: Fair Disposition: TRANS HIGHER LVL OF CARE FAC Referrals: Africa Churchill MD [Primary Care Provider] - - Billing Disposition and Condition Condition: FAIR Disposition: Trans Higher Lvl of Care Fac
[2019-07-18 18:29] VITALS: BP 175/98
== END 2019-07-18 18:30 | disposition short-term general hospital (02) ==
LOC: UCEAST 16:32
DX: S12.200A Unspecified displaced fracture of third cervical vertebra, initial encounter for closed fracture (principal); W19.XXXA Unspecified fall, initial encounter; Y93.K1 Activity, walking an animal; Y92.9 Unspecified place or not applicable; M47.892 Other spondylosis, cervical region; I10 Essential (primary) hypertension; Z87.891 Personal history of nicotine dependence
CPT/HCPCS: 12011; 72125; 99213; A9270-GY; G0463

== ENCOUNTER 2019-07-18 18:57 | Observation (INO) | payer BC ==
[2019-07-18] MEDS ORDERED: Ondansetron INJ* 2 MG/ML VIAL IV ONE (19:09)
[2019-07-18] MEDS ORDERED: Morphine 4 MG/ML VIAL (1 ml) 4 MG/ML VIAL IV ONE ×2 (19:09→20:19)
[2019-07-18] MEDS ORDERED: NS 0.9% 1000 ML** 1,000 ML IV ONE (19:12)
--- NOTE | 2019-07-18 19:16 | ED ---
Adult Trauma - HPI Summary HPI Summary: This patient is a 64 year old male presenting to [facility] with a chief complaint of cervical spine pain following adult trauma. The patient tripped over dog, slipped and fell into culvert, hitting head. He had no LOC. He has a laceration on the bridge of his nose. Pt was seen at [facility], dx with c-3 fracture and had 5 sutures placed on lac on bridge of nose. He received 100 mcg fentanyl and 4mg zofran [employer], pt expressing pain to posterior left neck. Pt is in c- collar upon arrival. Dr. Manzano, neurosurgery was already consulted [employer]. Pt denies any fever, chills, erythema of eyes, sore throat, CP, SOB, cough, abdominal pain, N/V, dysuria, hematuria, myalgia, edema, rash, or dizziness. - History of Current Complaint Chief Complaint: EDNeckComplaint Stated Complaint: C3 FRACTURE PER EMS Time Seen by Provider: 07/18/19 18:58 Hx Obtained From: Patient Mechanism of Injury: Fall Loss of Consciousness: no loss of consciousness Onset/Duration: Started Hours Ago Pain Intensity: 9 Pain Scale Used: 0-10 Numeric - Allergy/Home Medications Allergies/Adverse Reactions: Allergies Allergy/AdvReac Type Severity Reaction Status Date / Time Gadolinium-Containing Allergy Hives Verified 07/18/19 19:53 Contrast Medi latex Allergy See Comment Verified 07/18/19 19:01 Home Medications: Home Medications Aspirin EC TAB* [Ecotrin EC Low Dose 81 MG*] 81 mg PO DAILY 07/18/19 [History Confirmed 07/18/19] Atenolol TAB* [Tenormin TAB* 50 MG] 25 mg PO DAILY 07/18/19 [History Confirmed 07/18/19] Brimonid/Timolol 0.2/0.5%(NF) [Combigan 0.2/0.5% (NF)] 1 drop BOTH EYES DAILY [History Confirmed 07/18/19] BuPROPion XL* [Bupropion XL*] 300 mg PO QAM 07/18/19 [History Confirmed 07/18/19 ] Clomipramine (NF) 50 mg PO DAILY 07/18/19 [History Confirmed 07/18/19] Esomeprazole(NF) [NexIUM(NF)] 40 mg PO DAILY 07/18/19 [History Confirmed ] Netarsudil Mesylate [Rhopressa] 1 drop BOTH EYES DAILY 07/18/19 [History Confirmed 07/18/19] amLODIPine TAB* [Norvasc 5 mg TAB*] 5 mg PO DAILY 07/18/19 [History Confirmed ] PMH/Surg Hx/FS Hx/Imm Hx Endocrine/Hematology History: Reports: Hx Thyroid Disease - HYPOTHYROID- HASHIMOTOS Denies: Hx Diabetes Cardiovascular History: Reports: Hx Hypercholesterolemia, Hx Hypertension - MEDICATED, Other Cardiovascular Problems/Disorders - HIGH CHOLESTEROL Denies: Hx Pacemaker/ICD GI History: Reports: Other GI Disorders - Reflux at times, polyps removed History: Reports: Hx Kidney Stones Musculoskeletal History: Reports: Hx Arthritis - L HIP Sensory History: Reports: Hx Contacts or Glasses - GLASSES, Hx Glaucoma - BILATERAL Denies: Hx Hearing Aid Opthamlomology History: Reports: Hx Contacts or Glasses - GLASSES, Hx Glaucoma - BILATERAL Psychiatric History: Reports: Hx Anxiety - WHITE COAT SYNDROME Denies: Hx Panic Disorder - Surgical History Surgery Procedure, Year, and Place: UROLOGY SURGERIES- [facility] [place]. FOOT SURGERY-. Cj injection in bladder Hx Anesthesia Reactions: No Infectious Disease History: No Infectious Disease History: Reports: History Other Infectious Disease - Pseudamonas Denies: Traveled Outside the [place] in Last 30 Days - Family History Known Family History: Positive: Cardiac Disease, Hypertension - Social History Alcohol Use: None Substance Use Type: Reports: None Smoking Status (MU): Former Smoker Type: Cigars Amount Used/How Often: cigar once a month Have You Smoked in the Last Year: No Review of Systems Negative: Fever, Chills Negative: Erythema Negative: Sore Throat Negative: Chest Pain Negative: Shortness Of Breath, Cough Negative: Abdominal Pain, Vomiting, Nausea Negative: dysuria, hematuria Positive: Other - Neck pain Positive: Other - Laceration Neurological: Other - Neg: Dizziness All Other Systems Reviewed And Are Negative: No Physical Exam - Summary Physical Exam Summary: Constitutional: Well-developed, Well-nourished, Alert, Cooperative Skin: Warm, Dry. U-shaped laceration on bridge of the nose repaired at urgent care. HENT: Normocephalic; No Racoons eyes; No franks's sign; No abrasion; No contusion; No hemotympanum; No maxilla facial tenderness or instability; Dentition are smooth; No dental trauma; No trismus. No nasal bone tenderness. Eyes: EOM normal, PERRL Neck: Trachea is midline. No stridor; No JVD; No step off; No posterior cervical spine tenderness Cardio: Rhythm regular, rate normal Heart sounds normal; Intact distal pulses; The pedal pulses are 2+ and symmetric. Radial pulses are 2+ and symmetric. Pulmonary/Chest wall: Effort normal; Breath sounds normal; Equal chest rise; No flail segment; No rib tenderness; No sternal tenderness Abd: Soft, Appearance normal. No distension; No tenderness; No palpable pulsatile mass; No Cullens sign; No Garcia-Turners sign Musculoskeletal: Full ROM and no tenderness at hips, ankles, shoulders, elbows and knees; No joint swelling; No vertebral body tenderness; No paraspinal tenderness; No step off or deformity of the spine; Pelvis is stable to lateral compression and rock Neuro: Alert, Oriented x3, Strength 5/5 all extremities. Flexion and extension of the upper extremities fully in-tact. : No blood at urethral meatus Psych: Mood and affect Normal Triage Information Reviewed: Yes Vital Signs On Initial Exam: Initial Vitals Temp Pulse Resp BP Pulse Ox 98.7 F 69 18 177/84 93 07/18/19 18:58 07/18/19 18:58 07/18/19 18:58 07/18/19 18:58 07/18/19 18:58 Vital Signs Reviewed: Yes Diagnostics - Vital Signs Vital Signs Temp Pulse Resp BP Pulse Ox 07/18/19 18:58 98.7 F 69 18 177/84 93 - Laboratory Result Diagrams: 07/18/19 19:26 07/18/19 19:26 Lab Statement: Any lab studies that have been ordered have been reviewed, and results considered in the medical decision making process. - Radiology Cervical Spine MRI Radiology Interpretation Completed By: Radiologist Summary of Radiographic Findings: 1. Stable tiny C3 anterior inferior corner fracture. No associated spinal cord abnormalities. 2. Moderate multilevel cervical spondylopathy causing multilevel canal stenosis. ED Provider has reviewed this report. - EKG 2030 Cardiac Rate: NL - 68 BPM EKG Rhythm: Sinus Rhythm Summary of EKG Findings: No STEMI. Re-Evaluation - Re-Evaluation First Eval Re-Evaluation Time: 22:22 Comment: Patient reprots 7/10 pain. Adult Trauma Course/Dx - Course Course Of Treatment: This patient is a 64 year old male presenting to [facility] with a chief complaint of cervical spine pain following adult trauma. Cervical Spine MRI revealed 1. Stable tiny C3 anterior inferior corner fracture. No associated spinal cord abnormalities. 2. Moderate multilevel cervical spondylopathy causing multilevel canal stenosis. Dr. Gregorio, Hospitalist, accepted the patient for admission. This plan was discussed with the patient and he was agreeable with this plan. - Diagnoses Provider Diagnoses: Cervical spine fracture - Physician Notifications Discussed Care Of Patient With: Vassiljerzy Maherulos - Neurosurgery Time Discussed With Above Provider: 22:21 Instructed by Provider To: MD Will See In ED Discharge ED - Sign-Out/Discharge Documenting (check all that apply): Patient Departure - Admission Patient Received Moderate/Deep Sedation with Procedure: No - Discharge Plan Condition: Stable Disposition: ADMITTED TO [facility] Referrals: Africa Churchill MD [Primary Care Provider] - - Attestation Statements Document Initiated by Scribe: Yes Documenting Scribe: Venkat Felix Provider For Whom Scribe is Documenting (Include Credential): Joey Dunlap MD Scribe Attestation: Venkat Dubois, scribed for Joey Dunlap MD on 07/18/19 at 2102. Status of Scribe Document: Ready
[2019-07-18 19:35] LABS: Hematocrit 37 % (42-52); Hemoglobin 12.6 g/dL (14.0-18.0); Mean Corpuscular HGB Conc 34 g/dL (31-36); Mean Corpuscular Hemoglobin 32 pg (27-31); Mean Corpuscular Volume 95 fL (80-94); Platelet Count 196 10^3/uL (150-450); Red Blood Count 3.94 10^6 /uL (4.18-5.48); Red Cell Distribution Width 13 % (10-15); White Blood Count 9.3 10^3/uL (3.5-10.8)
[2019-07-18 19:44] LABS: Activated Partial Thrombo Time 38.4 seconds (26.0-38.0); INR 1.03 (0.82-1.09)
[2019-07-18 19:56] LABS: Albumin 4.1 g/dL (3.2-5.2); Albumin/Globulin Ratio 1.4 (1-3); BUN/Creatinine Ratio 19.3 (8-20); Calcium 8.7 mg/dL (8.6-10.3); EGFR African American 105.8 (>60); EGFR Non-African American 87.5 (>60); Potassium 3.9 mmol/L (3.5-5.0); Total Bilirubin 0.4 mg/dL (0.2-1.0); Total Protein 7.1 g/dL (6.4-8.9)
[2019-07-18] MEDS ORDERED: HYDROmorphone INJ1* 1 MG/ML SYRINGE IV SLOW PU ONE (22:11)
[2019-07-19] MEDS ORDERED: Morphine INJ* 2 MG/ML 1 ML SYRINGE (TWO MG - NEW SYRINGE VERSION) IV PRN (01:22)
[2019-07-19] MEDS ORDERED: oxyCODONE/Acetamin 5/325 MG* TAB PO PRN ×2 (01:22→02:02)
[2019-07-19] MEDS ORDERED: NS 0.9% 1000 ML** 1,000 ML IV SCH (01:30)
[2019-07-19] MEDS ORDERED: Morphine 4 MG/ML VIAL (1 ml) 4 MG/ML VIAL IV PRN ×2 (01:36→02:02)
[2019-07-19] MEDS ORDERED: HYDROmorphone INJ* 0.5 MG/0.5 ML SYRINGE IV SLOW PU PRN (02:01)
[2019-07-19] MEDS ORDERED: oxyCODONE TAB* 5 MG TAB PO PRN (02:02)
[2019-07-19] MEDS ORDERED: Morphine INJ* 4 MG/ML 1 ML SYRINGE (NEW SYRINGE VERSION) IV PRN (02:15)
--- NOTE | 2019-07-19 02:41 | CONS ---
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 The patient was walking his dog and he fell. He had no loss of consciousness. The patient denies any loss of memory. The patient had laceration to bridge of the nose. Because of his neck pain, the patient had CT scan of the cervical spine revealing an inferior anterior osteophyte fracture of C3. The patient reported mild neck pain and he denies any back pain. He denies any weakness, numbness, or tingling of his extremities. He was able to ambulate after the fall. He denies any urinary or GI incontinence. 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 He is and lives with his , who accommodates him at this visit. The patient was seen in the emergency room. I was requested to see the patient by Dr. Dunlap in the emergency room because of the above findings on the CT scan of the cervical spine. PAST MEDICAL HISTORY: The patient has history of hypothyroidism, Raza's; hypercholesterolemia; hypertension; reflux; kidney stones; arthritis; glaucoma; anxiety. PAST SURGICAL HISTORY: Multiple urological surgeries, foot surgery. MEDICATIONS: The patient is on : 1. Aspirin 81 mg. 2. Atenolol. 3. Brimonidine/timolol. 4. Bupropion. 5. Clomipramine. 6. Esomeprazole. 7. Netarsudil mesylate. 8. Amlodipine. ALLERGIES: The patient is allergic to GADOLINIUM-CONTAINING CONTRAST and LATEX. FAMILY HISTORY: Cardiac disease, hypertension. SOCIAL HISTORY: Tobacco: Negative except occasional use of cigars. Alcohol: Negative. Recreational drug use: Negative. PHYSICAL EXAM: The patient is not in any acute distress. He is awake, alert, oriented x3. His pupils are equal and reactive. Cranial nerves II through XII are grossly intact. Motor 4-5/5 in all extremities. No pronator drift. Sensory grossly intact to light touch. Deep tendon reflexes +1 bilaterally. No clonus. No Babinski. Sarah was negative. Straight leg test negative. The patient has a Sierra J-collar. The patient has no tenderness to palpation of the cervical, thoracic, or lumbar spine. He has free range of motion of the cervical spine. DIAGNOSTIC STUDIES: The patient had a CT scan of the cervical spine revealing inferior anterior endplate fracture of C3. No evidence of spondylolisthesis. No obvious sprain of the spinous processes. The patient had an MRI of his cervical spine revealing again the inferior anterior osteophyte fracture of C3. There is prevertebral edema versus hematoma on the STIR imaging, but he has mild increased signal in the interspinous ligament between C3 and C4. ASSESSMENT: The patient is a pleasant 64-year-old gentleman with recent fall with complaints of neck pain and imaging findings consistent with an inferior anterior C3 fracture. PLAN: The patient at this point is doing extremely well. He is neurologically intact. Based on the imaging, this may rather represent an anterior osteophyte fracture than a true teardrop fracture. Nevertheless, because of the presence of increased signal in the interspinous ligament, discussed with the patient small possibility that this may represent an unstable fracture. We would recommend to keep the Sierra-J collar on. The patient will be currently admitted by Internal Medicine. We recommend bedrest and head of the bed at 30 degrees and obtaining thoracic and lumbar spine x- rays. If imaging is negative , then the patient in a.m. can attempt flexion and extension x-ray of cervical spine. If films show limitation in range of motion and no obvious subluxation, the patient may keep the Sierra-J collar on and repeat flexion and extension in possibly 2 weeks. We discussed the possibility for need for surgical intervention if flexion and extension films reveal instability. Full instructions were given to the patient. Thank you for allowing us to participate in the care of this patient. Please do not hesitate to contact our office in case you have any further questions or concerns regarding the care of this patient. [id number]/[facility] #: [id number] CY
--- NOTE | 2019-07-19 05:50 | HP ---
CC: Dr. Bellamy; Dr. Africa Churchill ADMISSION HISTORY AND PHYSICAL: DATE OF ADMISSION: 07/19/19 CHIEF COMPLAINT: Neck pain. HISTORY OF PRESENT ILLNESS: This is a 64-year-old male with past medical history of hypertension, history of urethral stricture and BPH secondary to some Cj bead injections to his prostate, here due to a neck pain. The patient stated that he was in his usual state of health up until today when he was walking with his dog, the patient was dragged by the dog and he tripped over his dog and fell and hit his head. He had no loss of consciousness but he had some laceration at the bridge of his nose and he was seen at the urgent care facility and later sent to the emergency room for further evaluation. The patient otherwise denies any numbness, tingling, weakness anywhere on his body. He does have urethral stricture and uses self cath at home as needed but no other stool incontinence. No other shortness of breath or chest pain, but does have severe pain around the neck region. PAST MEDICAL HISTORY: As mentioned, 1. Hypertension. 2. History of urethral strictures with use of Cj injections to the urethra , which he states caused some prostatic hypertrophy, now uses self cath as needed. 3. History of glaucoma. 4. Chronic back pain. 5. History of low testosterone, also taking clomiphene citrate likely for the prostatic hypertrophy. 6. Depression. PAST SURGICAL HISTORY: He has had multiple cystoscopies and stricture surgeries for urethra but no other surgeries. HOME MEDICATIONS: The patient currently on: 1. Clomiphene citrate 1 tablet oral daily. 2. Tamsulosin 0.4 mg oral daily. 3. Rosuvastatin 2.5 mg oral daily. 4. Combigan 1 drop both eyes daily. 5. Lumigan 1 drop both eyes every evening. 6. Aspirin 81 mg oral daily. 7. Nexium 40 mg oral daily. 8. Atenolol 25 mg oral daily. 9. Bupropion 300 mg every morning. 10. Roxicodone 10 to 20 mg every 6 hours as needed. 11. Amlodipine 5 mg oral daily. 12. Rhopressa 1 drop ophthalmic daily both eyes. ALLERGIES: The patient is allergic to GADOLINIUM CONTAINING CONTRAST this causes hives and LATEX allergies. FAMILY HISTORY: Mother in her 80s due to coronary artery disease and father in his 80s as well due to coronary artery disease. Paternal grandfather passed in his 50s due to coronary artery disease. SOCIAL HISTORY: The patient does smoke cigar roughly once a month. Denies any alcohol or drug use. Lives with . 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 He is a full code status and is the healthcare proxy. REVIEW OF SYSTEMS: A 14-point review of systems did not reveal any new information other than what is mentioned in the HPI. PHYSICAL EXAMINATION GENERAL: The patient is awake, alert, and oriented x3, did not appear to be in any acute respiratory distress. VITAL SIGNS: In the ER, BP was noted to be 147/78, heart rate 75, respiration rate 17, temperature 98.7, oxygen saturation 92% on room air. HEAD AND NECK: The patient did have trauma to the bridge of the nose with some bleeding. Neck was noted to be in a Maries J collar. LUNGS: Clear to auscultation in the anterior without any adventitious lung sounds. HEART: S1, S2. Regular rate and rhythm. ABDOMEN: Soft, nontender, nondistended. EXTREMITIES: No cyanosis, clubbing, or edema. DIAGNOSTIC STUDIES/LAB DATA: CBC was unremarkable except for some mild anemia with hemoglobin of 12.6, hematocrit of 37, platelet count was within normal limits. Coagulation profile unremarkable. Comprehensive metabolic panel shows some mild hyponatremia, but otherwise unremarkable. CT cervical spine was showing small acute displaced fracture arising from the anterior inferior endplate of C3 vertebral body, mild to moderate cervical spondylosis and MRI of the cervical spine also performed today essentially showed the same thing with stable tiny C3 anterior inferior corner fracture. No associated spinal cord abnormalities and moderate multilevel spondylopathy causing multilevel canal stenosis. EKG showed sinus rhythm at 68 beats per minute with right bundle- branch block, which was chronic. IMPRESSION: This is a 64-year-old male with C3 fracture, which is stable. Neurosurgery was also already consulted who evaluated the patient even before me and suggested hospital admission via hospitalist service and he will evaluate the patient again in the morning and follow the patient till discharge. ASSESSMENT AND PLAN: 1. C3 fracture. Bed rest, Maries J collar, head of bed at 30 degrees, and suggested possible repeating of thoracic and lumbar spine imaging in the morning. 2. History of hypertension. Restart home medication. 3. History of urethral stricture, straight cath p.r.n. 4. History of benign prostatic hypertrophy, on some antihormonal therapy. 5. History of depression, on medication. Restart home medication. 6. History of glaucoma. Restart his eye drops. 7. DVT prophylaxis with sequential compression device. 8. Code status. Full code and being healthcare proxy. [id number]/[facility] #: [id number]
[2019-07-19] MEDS ORDERED: TIMOLOL BOTH EYES SCH (09:00)
[2019-07-19] MEDS ORDERED: CMCS:Rosuvastatin (NF) 5 MG TAB PO SCH ×2 (09:00→21:00)
[2019-07-19] MEDS ORDERED: BuPROPion XL* 300 MG TAB.XL PO SCH (09:00)
[2019-07-19] MEDS ORDERED: Influenza VAC *QUAD* 2019-20* 0.5 ML SYRINGE IM ONE (09:00)
[2019-07-19] MEDS ORDERED: amLODIPine TAB* 5 MG PO SCH ×2 (09:00→21:00)
[2019-07-19] MEDS ORDERED: [UNRECOGNIZED DRUG - OTHER] BOTH EYES SCH (09:00)
[2019-07-19] MEDS ORDERED: Atenolol TAB* 25 MG PO SCH ×2 (09:00→21:00)
[2019-07-19] MEDS ORDERED: BRIMONID BOTH EYES SCH (09:00)
[2019-07-19] MEDS ORDERED: Tamsulosin CAP* 0.4 MG PO SCH (09:00)
[2019-07-19] MEDS ORDERED: Pantoprazole TAB * 40 MG TAB PO SCH (09:00)
[2019-07-19] MEDS ORDERED: Aspirin EC TAB* 81 MG TAB.EC PO SCH (09:00)
[2019-07-19] MEDS ORDERED: [UNRECOGNIZED DRUG - OTHER] PO SCH (09:00)
[2019-07-19] MEDS: HYDROmorphone INJ1* 1 MG/ML SYRINGE IV SLOW PU PRN ×2 (09:07→13:57)
[2019-07-19 11:58] VITALS: BP 156/90
[2019-07-19 12:08] LABS: ABS Basophils 0.1 10^3/ul (0-0.2); ABS Eosinophils 0.1 10^3/ul (0-0.6); ABS Lymphocytes 0.9 10^3/ul (1.0-4.8); ABS Monocytes 0.6 10^3/ul (0-0.8); ABS Neutrophils 6.3 10^3/ul (1.5-7.7); Eosinophil % 1.5 %; Hematocrit 39 % (42-52); Lymphocyte % 11.2 %; Mean Corpuscular HGB Conc 34 g/dL (31-36); Mean Corpuscular Hemoglobin 32 pg (27-31); Mean Corpuscular Volume 94 fL (80-94); Mean Platelet Volume 7.2 fL (7.4-10.4); Platelet Count 208 10^3/uL (150-450); Red Cell Distribution Width 13 % (10-15)
[2019-07-19 12:26] LABS: BUN/Creatinine Ratio 14.5 (8-20); Calcium 8.9 mg/dL (8.6-10.3); EGFR African American 140.1 (>60); EGFR Non-African American 115.8 (>60); Potassium 3.8 mmol/L (3.5-5.0)
--- NOTE | 2019-07-19 13:10 | PN ---
Progress Note - Progress Note Date of Service: 07/19/19 Note: Patient's cervical spine flexion and extension was reviewed with Dr. Bellamy alignment appears to be intact, will recommend he continues to wear [place] J collar and follow in clinic in 2 -3 weeks with new flexion and extension x rays of the cervical spine. Patient has no agreed to complete lumbar spine x ray's to rule out injury. Will follow up imaging and will be available if needed.
[2019-07-19] MEDS ORDERED: Latanoprost 0.005%* 2.5 ml BTL BOTH EYES SCH (18:00)
--- NOTE | 2019-07-19 22:45 | DS ---
DISCHARGE SUMMARY: DATE OF ADMISSION: To observation, 07/19/19 DATE OF DISCHARGE: 07/19/19 PRIMARY DIAGNOSIS: Inferior anterior C3 fracture. SECONDARY DIAGNOSES: 1. Hypothyroidism, Raza's. 2. Hypercholesterolemia. 3. Hypertension. 4. Acid reflux. 5. Kidney stones. 6. Arthritis. 7. Glaucoma. 8. Anxiety. 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 The patient was in his usual state of health up until today when he was walking his dog and was dragged by the dog and tripped over his dog and fell and hit his dog, did not have any loss of consciousness, who was initially seen in the urgent care center and was sent to the ER for further evaluation. In the ER, the patient underwent MRI of the cervical spine, which showed stable tiny C3 anterior inferior corner fracture, no associated spinal cord abnormalities, moderate multilevel cervical spondylopathy causing multilevel canal stenosis. The patient was observed overnight and was also seen by Neurosurgery, Dr. Bellamy, who recommended that the patient be on bed rest, have the head of the bed elevated to 35 degrees, and obtaining thoracic and lumbar spine x-rays in the morning and if this was negative to attempt flexion- extension x-ray of the cervical spine and to keep on the [place] J collar. The patient was seen again this morning by Dr. Bellamy. The patient had thoracic spine x-ray, which did not show any osseous abnormality of the thoracic spine, had a lumbar spine x-ray, which did not show acute fracture, showed multilevel spondylosis and underwent cervical spine x-ray, which did not show any dynamic instability at C3-C4, small fracture fragment extending from anterior inferior endplate of C3, was re-demonstrated with prevertebral soft tissue swelling, 5-mm retrolisthesis of C5 on C6 with no dynamic instability. The patient had his films reviewed by Neurosurgery and at this point, they recommend that the patient can be discharged home with a [place] J collar, which he would have to wear for 2 weeks and follow up with them in their office in 2 weeks for repeat flexion- extension imaging of the cervical spine. The patient understands this and will follow up with them as an outpatient. Vitals and labs noted to be stable at time of discharge. PHYSICAL EXAMINATION: Vitals: Temperature 97.7, pulse 83, respiratory rate 20 , oxygen saturation 95% on room air, blood pressure 156/90. The patient has not received his blood pressure medication this morning as he was n.p.o. and his diet has been advanced. HEENT: NCAT. The patient has a [place] J collar in place. Heart: S1, S2 present, regular at time of exam. Lungs: Clear to auscultation bilaterally. Abdomen: Soft, nontender. Extremities: No edema. Neuro: Alert, oriented. LABORATORY DATA: WBC 8, hemoglobin 13, hematocrit 39, platelets noted to be 208. Sodium 134, potassium 3.8, chloride 100, CO2 28, BUN 10, creatinine 0.69. MEDICATION LIST: No changes to his home medication list and the patient already has oxycodone to take as needed at home. DISCHARGE MED LIST: 1. Clomiphene 1 tab p.o. daily. 2. Tamsulosin 0.4 mg p.o. daily. 3. Rosuvastatin 2.5 mg p.o. daily. 4. Combigan eye drops daily. 5. Lumigan eye drops daily. 6. Aspirin 81 mg p.o. daily. 7. Nexium 40 mg p.o. daily. 8. Atenolol 25 mg p.o. daily. 9. Wellbutrin 300 mg p.o. q.a.m. 10. Oxycodone 10 to 20 mg p.o. q.6 hours p.r.n. 11. Amlodipine 5 mg p.o. daily. 12. Rhopressa to both eyes daily. DIAGNOSTIC STUDIES/LAB DATA: Labs as discussed above. Imaging as discussed above. Imagin. Cervical spine MRI on 07/18/19 showed stable tiny C3 anterior inferior corner fracture, no associated spinal cord abnormalities, moderate multilevel cervical spondylopathy causing multilevel canal stenosis. 2. Thoracic spine x-ray on 07/19/19, no obvious osseous abnormality of the thoracic spine. Evaluation is limited without a lateral view which the patient refused. 3. Cervical spine x-ray with flexion, extension. Small fracture fragment extending from the anterior inferior endplate of C3 re-demonstrated with prevertebral soft tissue swelling. No dynamic instability at C3-C4, 5-mm retrolisthesis of C5 on C6 with no dynamic instability. 4. Lumbar x-ray on 07/19/19, no fracture or traumatic misalignment by radiograph, multilevel spondylosis noted. DISPOSITION: Home. CONDITION: Stable. INSTRUCTIONS: 1. The patient to follow up with his PCP in a week. 2. The patient to wear his [place] J collar. 3. The patient to follow up with Neurosurgery, Dr. Bellamy, in 2 weeks. 4. The patient needs flexion-extension imaging/x-ray of his cervical spine in 2 weeks. TIME SPENT: Total time spent on discharge equals to 45 minutes. [id number]/CPS #: [id number] CY
== END 2019-07-19 20:25 | disposition home or self-care (01) ==
LOC: ED 18:57 → MEDTELE 07-19 01:22 → INTOOBSV 07-19 01:22
PROVIDERS: ADMIT Internal Medicine; ATTEND Internal Medicine
DX: S12.200A Unspecified displaced fracture of third cervical vertebra, initial encounter for closed fracture (principal); M54.2 Cervicalgia; W01.0XXA Fall on same level from slipping, tripping and stumbling without subsequent striking against object, initial encounter; Y92.9 Unspecified place or not applicable; E03.9 Hypothyroidism, unspecified; I10 Essential (primary) hypertension; E78.00 Pure hypercholesterolemia, unspecified; Z87.442 Personal history of urinary calculi; F41.9 Anxiety disorder, unspecified; Z87.891 Personal history of nicotine dependence; Z79.82 Long term (current) use of aspirin; K21.9 Gastro-esophageal reflux disease without esophagitis; M19.90 Unspecified osteoarthritis, unspecified site; H40.9 Unspecified glaucoma; F32.9 Major depressive disorder, single episode, unspecified; R94.31 Abnormal electrocardiogram [ECG] [EKG]
CPT/HCPCS: 36415; 72040; 72070; 72100; 72141; 80048; 80053; 85025; 85027; 85610; 85730; 90471; 90686; 93005; 96361; 96374; 96375; 96376; 99283; A9270-GY; G0008; G0378; J1170; J2270; J2405

== ENCOUNTER 2019-07-20 20:39 | Emergency (ER) | payer BC ==
--- NOTE | 2019-07-21 00:12 | ED ---
Neck Pain - HPI Summary HPI Summary: The patient is a 64 y/o M presenting to [facility] with increasing posterior neck pain today. He was referred by Dr. Bellamy, neurosurgery, following a C3 fracture with discharge yesterday. He additionally c/o headache in the occipital area. He denies any weakness or numbness in the hands. He thought that this could be just a migraine exacerbation since he has hx of migraine headaches. Currently, his aching pain is rated 6/10 in severity as the pain is remitting and is almost gone at this point. He takes Oxycodone 10mg for unrelated pain that hasnt relieved the pain. Movement aggravates the pain, rest alleviates it. PMHx: hypothyroid, Hashimotos, HLD, HTN, arthritis, pseudomonas. Former smoker, no EtOH, no substance use. Medications reviewed. Allergies noted. - History of Current Complaint Chief Complaint: EDNeckComplaint Stated Complaint: C3 FRACTURE PER PT Time Seen by Provider: 07/21/19 00:03 Hx Obtained From: Patient Mechanism Of Injury: Other - C3 fracture three days ago Timing: Lasting Hours Onset/Duration: Started hours ago, Still Present Severity Initially: Mild Severity Currently: Moderate Pain Intensity: 6 Pain Scale Used: 0-10 Numeric Location: Discrete At: - posterior neck Character: Aching Aggravating Factors: Movement Alleviating Factors: Position - rest Associated Signs & Symptoms: Negative: Weakness, Paresthesia - Allergies/Home Medications Allergies/Adverse Reactions: Allergies Allergy/AdvReac Type Severity Reaction Status Date / Time Gadolinium-Containing Allergy Hives Verified 07/20/19 20:59 Contrast Medi latex Allergy See Comment Verified 07/20/19 20:59 PMH/Surg Hx/FS Hx/Imm Hx Endocrine/Hematology History: Reports: Hx Thyroid Disease - HYPOTHYROID- HASHIMOTOS Denies: Hx Diabetes Cardiovascular History: Reports: Hx Hypercholesterolemia, Hx Hypertension - MEDICATED, Other Cardiovascular Problems/Disorders - HIGH CHOLESTEROL Denies: Hx Pacemaker/ICD GI History: Reports: Other GI Disorders - Reflux at times, polyps removed History: Reports: Hx Kidney Stones Musculoskeletal History: Reports: Hx Arthritis - L HIP, Other Musculoskeletal History - C3 fracture Sensory History: Reports: Hx Contacts or Glasses, Hx Glaucoma - BILATERAL Denies: Hx Hearing Aid Opthamlomology History: Reports: Hx Contacts or Glasses, Hx Glaucoma - BILATERAL Psychiatric History: Reports: Hx Anxiety - WHITE COAT SYNDROME Denies: Hx Panic Disorder - Surgical History Surgical History: Yes Surgery Procedure, Year, and Place: UROLOGY SURGERIES- [facility]. FOOT SURGERY-. Cj injection in bladder Hx Anesthesia Reactions: No Infectious Disease History: No Infectious Disease History: Reports: History Other Infectious Disease - Pseudamonas Denies: Traveled Outside the [place] in Last 30 Days - Family History Known Family History: Positive: Cardiac Disease, Hypertension - Social History Alcohol Use: None Hx Substance Use: No Substance Use Type: Reports: None Hx Tobacco Use: Yes Smoking Status (MU): Former Smoker Type: Cigars Amount Used/How Often: cigar once a month Have You Smoked in the Last Year: No Review of Systems Positive: Other - increasing neck pain Negative: Weakness, Numbness All Other Systems Reviewed And Are Negative: Yes Physical Exam - Summary Physical Exam Summary: Appearance: Well-appearing, Well-nourished, lying in bed comfortable Skin: Warm, dry, no obvious rash Eyes: sclera anicteric, no conjunctival pallor ENT: mucous membranes moist Neck: Left in collar for exam Respiratory: No signs of respiratory distress Cardiovascular: Appears well perfused, pulses are nml Abdomen: deferred Musculoskeletal: Moving all 4 extremities without obvious discomfort Neurological: Awake and alert, mentation is normal, speech is fluent and appropriate, Normal sensation and normal mobility of arms, legs, and hands Psychiatric: affect is normal, does not appear anxious or depressed Triage Information Reviewed: Yes Vital Signs On Initial Exam: Initial Vitals Temp Pulse Resp BP Pulse Ox 97.2 F 61 18 152/90 92 07/20/19 20:56 07/20/19 20:56 07/20/19 20:56 07/20/19 20:56 07/20/19 20:56 Vital Signs Reviewed: Yes Diagnostics - Vital Signs Vital Signs Temp Pulse Resp BP Pulse Ox 07/20/19 23:25 98.3 F 61 16 117/73 93 07/20/19 20:56 97.2 F 61 18 152/90 92 - Laboratory Lab Statement: Any lab studies that have been ordered have been reviewed, and results considered in the medical decision making process. - Radiology Cervical Spine XR Radiology Interpretation Completed By: ED Physician Summary of Radiographic Findings: No significant ligamentous injury on flexion or extension views of the neck. ED physician has interpreted this report. Pending official report. Re-Evaluation - Re-Evaluation First Eval Re-Evaluation Time: 00:10 Change: Unchanged Comment: We discussed XR results and discharge plan. Neck Course/Dx - Course Course Of Treatment: Pt is a 64 y/o M with cc of increasing posterior neck pain following C3 fracture with Dr. Gomez referral for ED visit today. Denies any weakness or numbness. Upon physical exam, the pts neck was left in the c- collar for the exam, and he has normal sensation and normal mobility of arms, legs, and hands. Cervical spine x-ray, per my interpretation, reveals no significant ligamentous injury on flexion or extension views of the neck. We discussed all results and plan for discharge, and he understands and agrees with the plan. Dx of fracture of third cervical vertebra. - Diagnoses Provider Diagnoses: Fracture of third cervical vertebra Discharge ED - Sign-Out/Discharge Documenting (check all that apply): Patient Departure - Patient will be discharged home. Patient Received Moderate/Deep Sedation with Procedure: No - Discharge Plan Condition: Good Disposition: HOME Patient Education Materials: Cervical Fracture (ED) Referrals: Africa Churchill MD [Primary Care Provider] - Sreekanth Bellamy MD [Medical Doctor] - (as scheduled) - Billing Disposition and Condition Condition: GOOD Disposition: Home - Attestation Statements Document Initiated by Madison: Yes Documenting Scribe: Gela Gomez Provider For Whom Madison is Documenting (Include Credential): Dr. Jimy Giraldo MD Scribe Attestation: Gela Dubois, scribed for Dr. Jimy Giraldo MD on 07/21/19 at 1839. Scribe Documentation Reviewed: Yes Provider Attestation: The documentation as recorded by the Gela collier accurately reflects the service I personally performed and the decisions made by me, Dr. Jimy Giraldo MD Status of Scribe Document: Viewed
[2019-07-21 00:17] VITALS: BP 124/81
== END 2019-07-21 00:14 | disposition home or self-care (01) ==
LOC: ED 20:39
DX: S12.200A Unspecified displaced fracture of third cervical vertebra, initial encounter for closed fracture (principal); M54.2 Cervicalgia; E03.9 Hypothyroidism, unspecified; E78.5 Hyperlipidemia, unspecified; I10 Essential (primary) hypertension; Z87.891 Personal history of nicotine dependence; E78.00 Pure hypercholesterolemia, unspecified; N20.0 Calculus of kidney; F41.9 Anxiety disorder, unspecified; X58.XXXA Exposure to other specified factors, initial encounter; Y92.9 Unspecified place or not applicable
CPT/HCPCS: 72052; 99282

== ENCOUNTER 2022-11-04 11:15 | Inpatient (IN) ==
[2022-11-04] MEDS ORDERED: NS 0.9% 1000 ml BAG 1,000 ML IV ONE (11:50)
[2022-11-04 12:07] LABS: Venous Bicarbonate HCO3 26.3 mmol/L (24-28)
[2022-11-04 12:08] LABS: ABS Basophils 0.1 10^3/ul (0-0.2); ABS Eosinophils 0.7 10^3/ul (0-0.6); ABS Lymphocytes 0.9 10^3/ul (1.0-4.8); ABS Monocytes 0.6 10^3/ul (0-0.8); ABS Neutrophils 5.1 10^3/ul (1.5-7.7); Eosinophil % 9.8 %; Hematocrit 40 % (42-52); Lymphocyte % 12.6 %; Mean Corpuscular HGB Conc 33 g/dL (31-36); Mean Corpuscular Hemoglobin 31 pg (27-31); Mean Corpuscular Volume 94 fL (80-94); Mean Platelet Volume 7.3 fL (7.4-10.4); Platelet Count 165 10^3/uL (150-450); Red Blood Count 4.22 10^6 /uL (4.18-5.48); Red Cell Distribution Width 14 % (10-15); White Blood Count 7.4 10^3/uL (3.5-10.8)
[2022-11-04 12:33] LABS: High Sens Troponin Baseline 15 pg/mL (<20)
[2022-11-04 12:42] LABS: ALT 20 U/L (7-52); AST 27 U/L (13-39); Albumin 4.1 g/dL (3.2-5.2); Albumin/Globulin Ratio 1.5 (1-3); Alkaline Phosphatase 62 U/L (35-149); Blood Urea Nitrogen 27 mg/dL (6-24); CO2 Carbon Dioxide 28 mmol/L (22-32); Calcium 8.5 mg/dL (8.6-10.3); Chloride 102 mmol/L (101-111); Creatine Kinase 162 U/L (10-223); Globulin 2.8 g/dL (2-4); Glucose 139 mg/dL (70-100); Lipase < 10 U/L (11.0-82.0); Magnesium 2.1 mg/dL (1.9-2.7); Sodium 137 mmol/L (135-145); Total Protein 6.9 g/dL (6.4-8.9); eGFR CKD-EPI 79.2 (>60)
[2022-11-04 12:46] LABS: Anion Gap 7 mmol/L (2-11); Potassium 5.2 mmol/L (3.5-5.0)
[2022-11-04 13:40] LABS: High Sensitivity Troponin 1 Hr 39 pg/mL (<20)
[2022-11-04] MEDS ORDERED: Iodixanol (CONTRAST) 320 MG/ML 100 ML SDV IV ONE (13:42)
[2022-11-04 14:01] LABS: PCO2 Arterial 57 mmHg (35-45); PO2 Arterial 84 mmHg (80-100)
[2022-11-04 15:40] LABS: High Sensitivity Troponin 3 Hr 62 pg/mL (<20)
[2022-11-04] MEDS ORDERED: Naloxone Nasal Spray 4 MG/0.1 ML NASAL.SPR INTRANASAL PRN (17:21)
[2022-11-04 17:34] LABS: Cholesterol 143 mg/dL; HDL Cholesterol 75.8 mg/dL; LDL Cholesterol 56 mg/dL; Triglycerides 57 mg/dL
[2022-11-04] MEDS ORDERED: Enoxaparin 40 MG/0.4 ML SYR SUBCUT SCH (18:00)
[2022-11-04 19:55] LABS: Albumin 4.1 g/dL (3.2-5.2); Albumin/Globulin Ratio 1.5 (1-3); Calcium 8.6 mg/dL (8.6-10.3); Globulin 2.8 g/dL (2-4); Total Bilirubin 0.3 mg/dL (0.2-1.0); Total Protein 6.9 g/dL (6.4-8.9); eGFR CKD-EPI 95.5 (>60)
[2022-11-04 19:56] LABS: Potassium 5.1 mmol/L (3.5-5.0)
[2022-11-04] MEDS ORDERED: Latanoprost 0.005% 2.5 ml BTL BOTH EYES SCH (21:00)
[2022-11-05 05:00] VITALS: BP 153/77
[2022-11-05 06:42] LABS: ABS Eosinophils 0.5 10^3/ul (0-0.6); ABS Lymphocytes 1.1 10^3/ul (1.0-4.8); ABS Monocytes 0.6 10^3/ul (0-0.8); ABS Neutrophils 5.1 10^3/ul (1.5-7.7); Eosinophil % 6.7 %; Hematocrit 38 % (42-52); Hemoglobin 12.7 g/dL (14.0-18.0); Lymphocyte % 14.6 %; Mean Corpuscular HGB Conc 34 g/dL (31-36); Mean Corpuscular Hemoglobin 31 pg (27-31); Mean Corpuscular Volume 93 fL (80-94); Mean Platelet Volume 7.6 fL (7.4-10.4); Nucleated Red Blood Cells % 0.1; Platelet Count 134 10^3/uL (150-450); Red Blood Count 4.05 10^6 /uL (4.18-5.48); Red Cell Distribution Width 14 % (10-15); White Blood Count 7.4 10^3/uL (3.5-10.8)
[2022-11-05 06:53] LABS: INR 1.05 (0.88-1.18)
[2022-11-05 06:55] LABS: Urine Appearance Clear; Urine Bilirubin Negative (Negative); Urine Blood 1+ (Negative); Urine Color Straw; Urine Glucose Negative (Negative); Urine Ketones Negative (Negative); Urine Nitrite Negative (Negative); Urine Protein Negative (Negative); Urine Specific Gravity 1.004 (1.002-1.030); Urine Urobilinogen Negative (Negative)
[2022-11-05 06:56] LABS: Urine Bacteria Absent (Absent); Urine Red Blood Cell Trace(0-2/hpf) (Absent); Urine White Blood Cell 3+(>20/hpf) (Absent)
[2022-11-05 07:20] LABS: Urine Benzodiazepine Screen None Detected (None Detect); Urine Buprenorphine Screen None Detected (None Detect); Urine Cannabinoids Screen None Detected (None Detect); Urine Fentanyl Screen Presumptive Positive (None Detect); Urine Hydrocodone Screen None Detected (None Detect); Urine Opiates Screen None Detected (None Detect)
[2022-11-05] MEDS ORDERED: CLOMIPHENE CITRATE 50 MG PO SCH (09:00)
[2022-11-05] MEDS ORDERED: Brimonidine/Timolol 0.2%/0.5% OPTH(NF) SOL 5 ML BOTH EYES SCH (09:00)
[2022-11-05] MEDS ORDERED: NETARSUDIL 0.02% BOTH EYES SCH (09:00)
== END 2022-11-05 09:00 | disposition left against medical advice (07) | DRG 204 ==
LOC: ED 11:15 → EDHOLD 16:03 → MEDTELE 18:32
PROVIDERS: ADMIT Internal Medicine; ATTEND Internal Medicine